=== PATIENT | female | born 1955 | race Caucasian/White ===

== ENCOUNTER 2023-05-07 20:26 | Emergency (ER) | payer OTHER, SELFPAY ==
[2023-05-07 20:26] VITALS: BMI 24.4
[2023-05-07 20:33] VITALS: BP 126/68
--- NOTE | 2023-05-07 21:07 | ED.GENMED ---
History of Present Illness
General
Chief Complaint: Back Pain
Source: patient
Exam Limitations: none
Time Seen by Provider: 05/07/23 20:53
Travel History
Have you had any contact with someone who has COVID-19?: No
Do you have any symptoms of coronavirus? Fever > 100 degrees, chills, cough, shortness of breath, sore throat, loss of taste or smell, muscle aches, or headache?: No
History of Present Illness
History of Present Illness:
This is a 67 year old female that comes in with c/o low back pain. States that this started on Saturday. States that she couldn't even get OOB due to the pain. Yesterday she as at [facility] and she was given Decadron, Tylenol, Flexeril,
lidocaine patches, and Ibuprofen. Sttes that she took the advil at 7pm tonight and took Tylenol last at 9am. Patient has only take the Flexeril at night instead of BID as directed. State that she feels she can't get OOB without help or turn over due
to the pain. States that she does exercise and does Pilates but did not have pain with this. Denies any falls. Denies any fever, chill, chest pain, SOB, abd pain, nausea, vomitidng, dairrhea, headache, dizziness, urinary burning.
Past History
Past History
ED Past Medical History: Cancer (Melanoma), Hypothyroidism and Other (Back pain)
ED Past Surgical History: Gynecological (D&C) and Other (Right breast Biopsy, )
Social History
Tobacco: Non-smoker
Alcohol: Occasional
Personal:
Living: with family
Review of Systems
Review of Systems
All Other Systems: ROS reviewed and negative except as documented in HPI and ROS
Constitutional: Reports no symptoms; Denies fever or chills
EENT: Reports no symptoms
Respiratory: Reports no symptoms; Denies cough or trouble breathing
Cardiac: Reports no symptoms; Denies chest pain
ABD/GI: Reports no symptoms; Denies abdominal pain, nausea, vomiting or diarrhea
: Reports no symptoms; Denies dysuria, frequency or urgency
Musculoskeletal: Reports back pain (Low back pain)
Skin: Reports no symptoms; Denies itching or rash
Neurological: Reports no symptoms; Denies dizzy or headache
Psychiatric: Reports no symptoms
Phy Exam
General Physical Exam
General Presentation: no apparent distress
General age: appears stated age
General Skin: warm and dry
General Habitus: normal
General Mental: alert
General Hydration: appears well hydrated
ENT Exam
ENT Exam: TM's normal, pharynx normal and neck supple
Eye Exam
Eye Exam: EOMI
Cardiovascular Exam
Cardiovascular Exam: regular rate/rhythm, no edema, no murmur and normal peripheral pulses
Pulmonary Exam
Pulmonary Exam: lungs clear, no respiratory distress, no rales, chest non tender, no crackles, no rhonchi, no wheezing and no cough
Musculoskeletal Exam
Musculoskeletal Exam: other (Negative for any spinal tenderness or low back pain with palpation. Patient has discomfort with straight leg raise. Denies any discomfort with going up on her toes, Turning sided to side and bending forward. )
Skin Exam
Skin Exam: normal color, warm/dry, no rash and no petechia
Psychiatric Exam
Psychiatric Exam: normal mood/affect
Course
Orders/Labs/Results
Orders:
Orders
05/07/23 21:06
Lumbar Spine Complete, 4 View [CR Lumbar Spine Comp Min 4 Vw*] Urgent
Comment:
Reason For Exam: Low back pain
05/07/23 21:07
Acetaminophen [Tylenol] 1,000 mg PO NOW STA
05/07/23 21:11
Cyclobenzaprine HCl [Flexeril] 10 mg PO NOW STA
Vital Signs
Initial and Last Documented VS:
Initial Vital Signs
Temp Pulse Resp BP Pulse Ox
98.1 F 77 20 126/68 96
05/07/23 20:33 05/07/23 20:33 05/07/23 20:33 05/07/23 20:33 05/07/23 20:33
Last Documented Vital Signs
Temp Pulse Resp BP Pulse Ox
98.1 F 77 20 126/68 96
05/07/23 20:33 05/07/23 20:33 05/07/23 20:33 05/07/23 20:33 05/07/23 20:33
MDM/Problems Addressed
Differential Diagnosis Includes:
Muscle Spasm. Degenerative lumbar changes.
MDM/Problems Addressed:
This is a 67 year old female that comes in with c/o low back pain. States that this started on Saturday morning and she was unable to get OOB. States that she was seen at [facility] [address] yesterday and had Decadron. Told to take Tylenol and Motrin
and given Flexeril. Patient only took Flexeril once and took the Tylenol at 9am and Advil at 7pm. Patient is using a Lidoderm patch.
Will X-ray lumbar spine, Will give Tylenol and Flexeril at this time. Explained to patient that this will just take time to heal. Reviewed medication usage with patient.
Back into see patient. Explained that her X-rays show degenerative changes. Patient states that she is in severe pain even with the medication and that she needs help to get up. Explained to patient that backs take time to heal and she will have to
have her help her as needed. Will give patient the name of an community relations specialist for further evaluation. Patient to return with any concerns.
Chronic conditions affecting care:
Back pain
Acute Exacerbation and/or Progression of Chronic Illness:
Back pain
*Radiology
Radiology exam reviewed: radiology read reviewed (Lumbar spine- Degenerative changes. )
*Pulse Oximetry
Patient hypoxic: no
*EKG
Interpreted by ED Provider?: NA
Rate: EKG- N/A
*Accounting Administrative Assistant Interpretation
Rate: Accounting Administrative Assistant- N/A
*Critical Care Note
Total Time (30-74mins, 75-104mins- exclusive of procedures): Not Applicable
ED Attending Note
-
Portions of this chart may have been created with voice recognition software.� Occasional wrong word or��sound alike� substitutions may have occurred due to the inherent limitations of voice recognition software.
Discharge Plan
Departure
Patient Disposition: Home (Routine Discharge)
Date of Disposition: 05/07/23
Time of Disposition: 22:16
Patient with high blood pressure during this ER visit?: No
Condition: Good
Covid-19: Not Applicable
Discharge Problem:
Low back pain
Instructions: Low Back Pain (DC)
Referrals:
Hussain Smart MD [Active] - Call in 1-3 days for appt
Activity Restrictions/Additional Instructions:
As discussed, your X-ray shows degenerative changes. You may use the Lidocaine patch to help with pain. Ice or heat which ever makes you feel better. You may use Tylenol 1000mg every 6 hours for pian and Ibuprofen 600mg every 6 hours with food. So
if you take the Ibuprofen at 9am you will take the Tylenol at 12noon and then the Ibuprofen at 3pm and Tylenol at 6pm and so on. Use the Flexeril at 9am and 9pm. Follow up with the family doctor for recheck. You have also been given the name of an
community relations specialist for further evaluation. IF YOU HAVE ANY OTHER CONCERNS PLEASE RETURN TO THE EMERGENCY ROOM.
Interventions
Interventions:
*General Assessment Last Done: 05/07/23 20:33
*Neglect/Abuse Screening Last Done: 05/07/23 20:33
ED- Fall Risk Assessment Last Done: 05/07/23 20:33
*ED COVID-19 Vaccine History Last Done: 05/07/23 20:33
ED-Musculoskeletal Assessment Last Done: 05/07/23 21:18
[2023-05-07] MEDS: TYLENOL 1000 MG PO (21:17)
[2023-05-07] MEDS: FLEXERIL 10 MG PO (21:17)
== END 2023-05-07 23:00 | disposition home or self-care (01) ==
LOC: EMR 20:26
PROVIDERS: EMERGENCY PHYSICIAN Student in an Organized Health Care Education/Training Program; FAMILY PHYSICIAN Family Medicine
DX: M54.50 Low back pain, unspecified (principal)
CPT/HCPCS: 99283; 72110